=== PATIENT | female | born 1960 | race Caucasian/White ===

== ENCOUNTER 2018-12-19 17:33 | Inpatient (IN) | payer MEDICARE, MEDICAID ==
[~2018-12-19] VITALS: Ht 165.1 cm; Wt 61.2 kg
[2018-12-19] MEDS ORDERED: INVEGA SUSTENNA (17:54)
[2018-12-19] MEDS ORDERED: LEXAPRO (17:54)
[2018-12-19] MEDS ORDERED: OLAN5TAB3 PO (17:54)
[2018-12-19] MEDS ORDERED: PALI234D IM (18:00)
--- NOTE | 2018-12-19 18:03 | NUR ---
PT IS IN ROOM #5A. DR ANDERSON EVALUATED THE PT.
[2018-12-19 18:07] LABS: BASOPHILS # (AUTO) 0.1 K/uL (0.0-8.0); BASOPHILS % (AUTO) 0.6 % (0.0-2.0); EOSINOPHILS # (AUTO) 0.1 K/uL (0.0-0.7); EOSINOPHILS % (AUTO) 0.5 % (0.0-7.0); HEMOGLOBIN 15.6 g/dL (10.9-14.3); LYMPHOCYTES # (AUTO) 0.9 K/uL (20.0-40.0); LYMPHOCYTES % (AUTO) 9.7 % (20.5-51.5); MEAN CORPUSCULAR HEMOGLOBIN 30.8 uug (24.7-32.8); MEAN CORPUSCULAR HGB CONC 33 g/dL (32.3-35.6); MEAN CORPUSCULAR VOLUME 92.5 fL (75.5-95.3); MONOCYTES # (AUTO) 0.8 K/uL (2.0-10.0); MONOCYTES % (AUTO) 8.7 % (0.0-11.0); NEUTROPHILS # (AUTO) 7.6 K/uL (1.8-8.9); NEUTROPHILS % (AUTO) 80.5 % (38.5-71.5); PLATELET COUNT (AUTO) 327 K/uL (179-408); RED BLOOD CELL COUNT(AUTO) 5.08 MIL/uL (3.63-4.92); WHITE BLOOD COUNT (AUTO) 9.5 K/uL (3.8-11.8)
--- NOTE | 2018-12-19 18:11 | NUR ---
1st contact with patient- This patient just came back from radiology department, pending medical clearance for geriatric psych admission@this time
[2018-12-19 18:16] LABS: CARBON DIOXIDE 15 mmol/L (21-32); CHLORIDE 100 mmol/L (98-107); GLUCOSE 80 mg/dL (74-106); POTASSIUM 3.6 mmol/L (3.5-5.1); UREA NITROGEN, BLOOD 19 mg/dL (7-18)
[2018-12-19 18:19] LABS: ETHANOL < 3 MG/DL (0-0)
[2018-12-19 18:22] LABS: ALANINE AMINOTRANSFERASE 17 U/L (14-59); ALKALINE PHOSPHATASE 65 U/L (50-136); ASPARTATE AMINOTRANSFERASE 10 U/L (15-37); BILIRUBIN,DIRECT 0.2 mg/dL (0.0-0.2); BILIRUBIN,TOTAL 0.6 mg/dL (0.2-1.0)
[2018-12-19 18:23] LABS: ACETAMINOPHEN < 2.0 ug/mL (10-30)
[2018-12-19 18:32] LABS: *BILIRUBIN,URIN NEGATIVE (NEGATIVE); *BLOOD, URINE NEGATIVE (NEGATIVE); *CLARITY,URINE CLEAR (CLEAR); *COLOR,URINE YELLOW (YELLOW); *KETONES,URINE 4+ (NEGATIVE); *UROBILINOGEN,URINE 0.2 E.U./dl (NORMAL); LEUKOCYTE ESTERASE ,URINE NEGATIVE (NEGATIVE); NITRITE, URINE NEGATIVE (NEGATIVE); PH,URINE 5.5 (5.0-8.0); UGLUCOSE NEGATIVE (NEGATIVE)
[2018-12-19 18:32] LABS: THYROID STIMULATING HORMONE 2.664 mIU/mL (0.358-3.740)
--- NOTE | 2018-12-19 18:33 | NUR ---
Patient is not medically cleared. Patient will be admitted to med-surgical floor. Dr Delano Greene accepted the patient@[id number], pending bed & nurse assigned for this patient
[2018-12-19 18:46] LABS: ABG BASE EXCESS -11.1 mmol/L; ABG HCO3 13.1 mmol/L; ABG PCO2 26.3 mmHg (35.0-45.0); ABG PH 7.316 (7.350-7.450); ABG PO2 96.5 mmHg (75.0-100.0); ABG SITE RIGHT RADIAL; ABG TOTAL HEMOGLOBIN 15.2 G/dL (12.0-16.0); COHb 1.1 % (0.5-1.5); MetHb 0.3 % (0.0-1.5); VENT MODE ROOM AIR
[2018-12-19 18:49] LABS: MUCUS,URINE MODERATE /LPF (0-FEW)
[2018-12-19 19:00] LABS: *AMPHETAMINE, URINE NEGATIVE (NEGATIVE); *BARBITURATE, URINE NEGATIVE (NEGATIVE); *CANNABINOID, URINE NEGATIVE (NEGATIVE); *COCCAINE, URINE NEGATIVE (NEGATIVE); *OPIATE, URINE NEGATIVE (NEGATIVE); *PHENCYCLIDINE SCREEN,URINE NEGATIVE (NEGATIVE)
--- NOTE | 2018-12-19 19:16 | NUR ---
Hands off report given to RN John accordingly
--- NOTE | 2018-12-19 20:13 | NUR ---
Gave report to Sterling LUTHER
--- NOTE | 2018-12-19 20:30 | NUR ---
Pt. taken off unit via stretcher, NAD
--- NOTE | 2018-12-19 21:00 | NUR ---
Patient arrived from ED. Transferred to the bed. IV checked. ID band verified. Patient is awake, makes occasional eye contact. Responds Yes and No occasionally. Bed is in low locked position, call light is within reach, sitter is present. Comfort and safety provided.
[2018-12-19] MEDS ORDERED: OLANZAPINE 5 MG TABLET PO SCH (22:15)
[2018-12-19] MEDS ORDERED: MAGNESIUM HYDROXIDE 30 ML LIQUID UDC PO PRN (22:15)
[2018-12-19] MEDS ORDERED: ACETAMINOPHEN 325 MG TABLET PO PRN (22:15)
[2018-12-19] MEDS ORDERED: MORPHINE SULFATE 2 MG/1 ML DISP.SYRIN IV PRN (22:15)
[2018-12-19 22:49] VITALS: BP 129/85
[2018-12-19] MEDS ORDERED: LORAZEPAM 2 MG/1 ML VIAL IV PRN (23:15)
[2018-12-19] MEDS ORDERED: HALOPERIDOL LACTATE 5 MG/1 ML VIAL IM PRN (23:15)
[2018-12-19] MEDS: IV 1/2NS 1000 ML 1,000 ML IV PRN (23:17)
--- NOTE | 2018-12-20 02:30 | NUR ---
PATIENT REACHED TO THE TABLE AND TOOK HER APPLE JUICE, DRANK 200ML UNASSISTED. WITHDRAWN BUT MAKES OCCASIONAL EYE CONTACT AND SMILED AT THE THERMAL SURFACING MACHINE OPERATOR ONCE. IV IS RUNNING 80ML 1/2NS AT 80. SLEEPS INTERMITTENTLY. COMFORT AND SAFETY PROVIDED. WILL CONTINUE TO MONITOR
--- NOTE | 2018-12-20 04:00 | NUR ---
PATIENT WAS GIVEN A FULL BED BATH, SHAMPOO, AND ORAL CARE. PATIENT BRUSHED HER TEETH VIGOROUSLY WITH SCANT GUM BLEEDING AND COMBED HER HAIR. FOLLOWS BASIC COMMANDS AND IS SOMEWHAT COOPERATIVE. NO BM OR URINE OUTPUT. BED ALARM IS ON. SITTER PRESENT. COMFORT ANS SAFETY PROVIDED.
[2018-12-20 04:25] VITALS: BP 129/85
--- NOTE | 2018-12-20 04:30 | NUR ---
PATIENT REACHED TO THE TABLE AND DRANK SOME ORANGE JUICE, NO COUGH AFTERWARDS.
--- NOTE | 2018-12-20 05:00 | NUR ---
PATIENT ATTEMPTED TO LEAVE THE BED UNASSISTED. PATIENT WAS DISCONNECTED FROM THE IV POLE AND SHE WALKED TO THE BATHROOM UNASSISTED TO URINATE, SHE THEN RETURNED TO THE BED UNASSISTED. GAIT IS STEADY. WILL CONTINUE TO MONITOR. BED ALARM IS ON. SITTER PRESENT. CALL LIGHT IS WITHIN REACH. COMFORT ANS SAFETY PROVIDED.
[2018-12-20 05:07] VITALS: BP 117/49
[2018-12-20] MEDS: PANTOPRAZOLE SODIUM 40 MG VIAL IV SCH (06:37)
--- NOTE | 2018-12-20 06:50 | NUR ---
PATIENT SLEPT INTERMITTENTLY DURING THE NIGHT. AMBULATED TO URINATE 1 TIME. NO S&S OF PAIN OR ACUTE DISTRESS. COMFORT AND SAFETY PROVIDED. SITTER IS BY THE DOOR.
[2018-12-20] MEDS ORDERED: PANTOPRAZOLE SODIUM 40 MG TABLET.DR PO SCH (07:00)
[2018-12-20 07:01] LABS: BASOPHILS % (AUTO) 0.5 % (0.0-2.0); EOSINOPHILS # (AUTO) 0.1 K/uL (0.0-0.7); EOSINOPHILS % (AUTO) 1.8 % (0.0-7.0); HEMATOCRIT 40.9 % (31.2-41.9); HEMOGLOBIN 14.1 g/dL (10.9-14.3); LYMPHOCYTES # (AUTO) 1.3 K/uL (20.0-40.0); LYMPHOCYTES % (AUTO) 17.1 % (20.5-51.5); MEAN CORPUSCULAR HEMOGLOBIN 31.7 uug (24.7-32.8); MEAN CORPUSCULAR HGB CONC 35 g/dL (32.3-35.6); MEAN CORPUSCULAR VOLUME 91.6 fL (75.5-95.3); MONOCYTES % (AUTO) 12.8 % (0.0-11.0); NEUTROPHILS # (AUTO) 5.1 K/uL (1.8-8.9); NEUTROPHILS % (AUTO) 67.8 % (38.5-71.5); PLATELET COUNT (AUTO) 308 K/uL (179-408); RED BLOOD CELL COUNT(AUTO) 4.47 MIL/uL (3.63-4.92); WHITE BLOOD COUNT (AUTO) 7.5 K/uL (3.8-11.8)
--- NOTE | 2018-12-20 07:20 | NUR ---
RECEIVED PATIENT IN BED LAYING COMFORTABLY AND QUIETLY, WITH 1;1 SITTER, ON HOLD FOR GRAVELY DISABLED, NO SOB NOTED AT THIS TIME, NO C/O PAIN AT THIS TIME, IN LOW BED , SIDE RAILS UP X2, BED ALARM ON, NO AGGRESSIVE BEHAVIOR NOTED .CONTINUE TO MONITOR , CONTINUE TREATMENT PLAN.
[2018-12-20 07:22] LABS: BILIRUBIN,TOTAL 0.7 mg/dL (0.2-1.0); MAGNESIUM 1.8 mg/dL (1.8-2.4); PHOSPHOROUS 3.9 mg/dL (2.5-4.9); TOTAL PROTEIN, SERUM 7.1 g/dL (6.4-8.2)
[2018-12-20 07:35] LABS: CREATININE 0.9 mg/dL (0.6-1.3); POTASSIUM 3.7 mmol/L (3.5-5.1)
[2018-12-20 07:43] VITALS: BP 108/70
[2018-12-20] MEDS ORDERED: IV NORMAL SALINE 250 ML IV ONE (08:33)
[2018-12-20] MEDS ORDERED: SWABABLE VALVE TRANSFER SET EA MC ONE (08:33)
[2018-12-20] MEDS ORDERED: NORMAL SALINE FLUSH 10 ML DISP.SYRIN ONE (08:33)
[2018-12-20] MEDS ORDERED: IOHEXOL 300MG/ML 100 ML INFUS..BTL ONE (08:33)
[2018-12-20] MEDS ORDERED: ESCITALOPRAM OXALATE 10 MG TABLET PO SCH (09:00)
[2018-12-20] MEDS: ESCITALOPRAM OXALATE 10 MG TABLET PO SCH (12:30)
[2018-12-20] MEDS: IV 1/2NS 1000 ML 1,000 ML IV PRN (13:00)
[2018-12-20 15:56] VITALS: BP 107/65
--- NOTE | 2018-12-20 18:35 | NUR ---
PATIENT ON HOLD FOR 5150 FOR GRAVELY DISABLED, NO AGGRESSIVE BEHAVIOR NOTED AT THIS TIME. PATIENT ALERT AND ORIENTED, CONTINENT, ABLE TO AMBULATE TO BATHROOM AND FEEDS HERSELF. EARLIER PATIENT REFUSED HER LEXAPRO. NO C/O PAIN AT THIS TIME, NO S/S OF ACUTE DISTRESS NOTED, IV INTACT AND PATENT. CONTINUE IV FLUIDS 0.45% AT 80 CC/HR, WILL CONTINUE TO MONITOR.
[2018-12-20 19:34] VITALS: BP 122/76
--- NOTE | 2018-12-20 20:00 | NUR ---
Patient was received from the day shift nurse, report received. Patient is in bed, sleeping, averts gaze when awake. No acute distress noted. Comfort and safety provided. IV is running, IV site is clean and intact.
--- NOTE | 2018-12-20 20:45 | NUR ---
patient ambulated to the bathroom once. Dinner tray is in the room, no food was eaten. Patient is calm. Comfort and safety provided.
[2018-12-20] MEDS ORDERED: DOCUSATE SODIUM 100 MG CAPSULE PO SCH (21:00)
[2018-12-20] MEDS ORDERED: OLANZAPINE 5 MG TABLET PO SCH (21:00)
[2018-12-21] MEDS: IV 1/2NS 1000 ML 1,000 ML IV PRN ×2 (04:46→17:23)
--- NOTE | 2018-12-21 06:45 | NUR ---
PATIENT WAS AWAKE ALL NIGHT, DID NOT EAT OR DRINK, EYES OPEN, WITHDRAWN, AVOIDS EYE CONTACT. DID NOT TAKE HER MEDS AFTER BEING OFFERED MULTIPLE TIMES. COMFORT AND SAFETY PROVIDED.
[2018-12-21] MEDS: PANTOPRAZOLE SODIUM 40 MG VIAL IV SCH (06:52)
--- NOTE | 2018-12-21 07:25 | NUR ---
Received patient in bed laying comfortably, with 1:1 sitter, on 5150 hold. alert and oriented x1, no s/s sob noted at this time, no c/o pain at this time, IV intact and patent, bed in low position, side rails up x2 , bed alarm on. no aggressive behavior noted. will continue to monitor and provide safety at all time. continue treatment plan.
[2018-12-21 07:27] VITALS: BP 120/75
[2018-12-21] MEDS: ESCITALOPRAM OXALATE 10 MG TABLET PO SCH (09:00)
[2018-12-21 11:30] VITALS: BP 126/78
[2018-12-21 12:00] VITALS: BP 126/78
[2018-12-21 15:29] VITALS: BP 119/75
[2018-12-21] MEDS ORDERED: PANT40TA2 PO (15:42)
[2018-12-21] MEDS ORDERED: ACET325T53 PO (15:42)
[2018-12-21] MEDS ORDERED: HALO5VIA9 IM (15:42)
[2018-12-21] MEDS ORDERED: OLAN5TAB3 PO (15:42)
[2018-12-21] MEDS ORDERED: ESCI10TA PO (15:42)
[2018-12-21] MEDS ORDERED: MAGN400O6 PO (15:42)
[2018-12-21] MEDS ORDERED: DOCU100C36 PO (15:42)
[2018-12-21 16:00] VITALS: BP 119/75
--- NOTE | 2018-12-21 18:15 | NUR ---
Received orders to discharge patient to mental health unit, discharge instructions given, no sob noted at this time, no c/o pain noted at this time. IV and band removed, no aggressive behavior noted, belonging accounted for, questions and concerns addressed.
[2018-12-22] MEDS ORDERED: PANTOPRAZOLE SODIUM 40 MG TABLET.DR PO SCH (07:00)
[2018-12-22 16:00] VITALS: BP 96/65
== END 2018-12-21 18:30 | DRG 640 ==
LOC: ER 17:34 → MEDSURG3 20:23
PROVIDERS: ADMIT Internal Medicine; ATTEND Internal Medicine
DX: E87.2 Acidosis (principal); N17.0 Acute kidney failure with tubular necrosis; G92 Toxic encephalopathy; J98.11 Atelectasis; D68.59 Other primary thrombophilia; F50.9 Eating disorder, unspecified; Z68.22 Body mass index [BMI] 22.0-22.9, adult; N85.4 Malposition of uterus; N28.1 Cyst of kidney, acquired; M41.9 Scoliosis, unspecified; I51.7 Cardiomegaly; F25.1 Schizoaffective disorder, depressive type; Z79.899 Other long term (current) drug therapy; Z91.14 Patient's other noncompliance with medication regimen; Z91.19 Patient's noncompliance with other medical treatment and regimen; K82.8 Other specified diseases of gallbladder
CPT/HCPCS: 36415; 36600; 70030-TC; 70450; 71045; 80307; 83605; 83735; 84100; 84443; 85025; 87040; 93005; 97110; 97530; A4663; C9113; G0378; G0480; G0480-TC; J3490; J7050; Q9967

== ENCOUNTER 2018-12-21 19:40 | Inpatient (IN) | payer MEDICARE, MEDICAID ==
[~2018-12-21] VITALS: Ht 165.1 cm; Wt 62.1 kg
[~2018-12-21 19:40] MED LIST: ACET325T53 PO; DOCU100C36 PO; ESCI10TA PO; HALO5VIA9 IM; LEXAPRO; MAGN400O6 PO; OLAN5TAB3 PO; PALI234D IM; PANT40TA2 PO
--- NOTE | 2018-12-21 20:00 | NUR ---
PATIENT ADMITTED GPS OVERFLOW. PATIENT IS A/O X2. FLAT AFFECT. UNABLE TO ASSESS OR RECEIVE ANY INFORMATION OR HISTORY FROM PATIENT. VERY PASSIVE WHEN APPROACHED. NO S/S OF PAIN OR DISCOMFORT. NO FACIAL GRIMACE NOTED. SITTER AT BEDSIDE FOR SAFETY, ALL NEEDS ATTENDED. WILL CONTINUE TO MONITOR AND ASSESS.
[2018-12-21] MEDS ORDERED: TEMAZEPAM 7.5 MG CAPSULE PO PRN (20:30)
[2018-12-21] MEDS ORDERED: MAG HYDROX/AL HYDROX/SIMETH 30 ML LIQUID UDC PO PRN (20:30)
[2018-12-21] MEDS ORDERED: ACETAMINOPHEN 325 MG TABLET PO PRN ×2 (20:30→21:45)
[2018-12-21] MEDS ORDERED: MAGNESIUM HYDROXIDE 30 ML LIQUID UDC PO PRN ×2 (20:30→21:45)
[2018-12-21] MEDS ORDERED: LORAZEPAM 0.5 MG TABLET PO PRN (20:30)
[2018-12-21 20:36] VITALS: BP 120/62
[2018-12-21] MEDS ORDERED: OLANZAPINE 5 MG TABLET PO SCH (21:00)
[2018-12-21] MEDS ORDERED: HALOPERIDOL LACTATE 5 MG/1 ML VIAL IM PRN (21:45)
[2018-12-22] MEDS: PANTOPRAZOLE SODIUM 40 MG TABLET.DR PO SCH ×2 (06:09→07:00)
--- NOTE | 2018-12-22 06:30 | NUR ---
PATIENT ASLEEP IN BED. EASILY AROUSABLE. SITTER AT BEDSIDE FOR SAFETY. PATIENT SLEPT 5 HOURS AND 45 MINUTES. ALL NEEDS ATTENDED. WILL CONTINUE TO MONITOR AND ASSESS.
[2018-12-22 08:39] VITALS: BP 107/68
[2018-12-22] MEDS ORDERED: ESCITALOPRAM OXALATE 10 MG TABLET PO SCH ×2 (09:00)
--- NOTE | 2018-12-22 17:05 | NUR ---
Report given to nurse, passing on care to new nurse, pt is stable at this time.
--- NOTE | 2018-12-22 17:55 | NUR ---
received patient asleep on bed, denies pain , no sob no discomfort, with 1:1 sitter for safety , patient refused her medication , sister called, asking if she can talk with Dr. Campbell, left the number to the next shift, will continue to monitor
--- NOTE | 2018-12-22 19:30 | NUR ---
Rec'd pt in bed with eyes closed, opens to verbal stimuli. No s/s of acute distress noted. 1:1 sitter at bedside for safety. Pt on 14D hold up 01/05 for GD. Refused food and care at home banquet captain. Noted with good apetite for breakfast and lunch at 100%. Per report, does not want to eat dinner yet. Will continue to offer. All safety precautions in place. Will cont to monitor.
[2018-12-22 19:38] VITALS: BP 108/64
--- NOTE | 2018-12-22 19:50 | NUR ---
Noted pt ate 100% of her dinner. Ronen well.
[2018-12-22] MEDS: DOCUSATE SODIUM 100 MG CAPSULE PO SCH (20:31)
--- NOTE | 2018-12-22 20:37 | NUR ---
Pt in bed asleep, easily arousable. Offered Colace 200mg caps as ordered for HS meds. Pt opened her eyes and just stared. Attempted to offer x3, refused x3. Educated on risks vs benefits but just stared. Pt's BM current per MAILROOM MESSENGER report.
[2018-12-22] MEDS ORDERED: OLANZAPINE 5 MG TABLET PO SCH (21:00)
[2018-12-22] MEDS ORDERED: OLANZAPINE ZYDIS 5 MG TAB.RAPDIS SL ONE (21:00)
--- NOTE | 2018-12-23 05:50 | NUR ---
Pt slept x6.5 hrs. Pt with BRP, noted in bathroom [id number], found staring at herself in the mirror. Redirected back to bed and went back sleep after. All safety precautions in place. 1:1 sitter at bedside. Will continue to monitor.
[2018-12-23] MEDS: PANTOPRAZOLE SODIUM 40 MG TABLET.DR PO SCH (06:25)
[2018-12-23 07:35] VITALS: BP 108/63
[2018-12-23 08:00] VITALS: BP 108/63
[2018-12-23] MEDS: ESCITALOPRAM OXALATE 10 MG TABLET PO SCH (08:18)
[2018-12-23 15:05] VITALS: BP 117/77
--- NOTE | 2018-12-23 15:09 | NUR ---
transfer the pt to u via wheelchair in stable condition
--- NOTE | 2018-12-23 15:30 | NUR ---
RECEIVED FROM MED SURG /PSYCH OVERFLOW IN NO ACUTE DISTRESS ORIENTED TO ROOM AND SURROUNDINGS. VSS. RESTING QUIETLY
--- NOTE | 2018-12-23 17:07 | NUR ---
Social work note: Patient is LPS conserved by her sister, Dona Walden [[phone]], and conservatorship paperwork is in patient chart. However, detain and treat is not in chart initially. 12/22/2018: child day care center worker called and spoke with Dona informing her that the hospital needs a detain and treat. child day care center worker emailed Dona the [facility] detain and treat requesting it be filled out and faxed back. 12/23/2018: child day care center worker received completed detain and treat from Dona and placed in patient chart.
[2018-12-23] MEDS: OLANZAPINE ZYDIS 5 MG TAB.RAPDIS PO SCH (20:50)
[2018-12-23] MEDS: DOCUSATE SODIUM 100 MG CAPSULE PO SCH (20:50)
[2018-12-23] MEDS: OLANZAPINE 10 MG VIAL IM SCH (20:50)
[2018-12-24] MEDS: PANTOPRAZOLE SODIUM 40 MG TABLET.DR PO SCH (06:04)
[2018-12-24 07:30] VITALS: BP 115/81
[2018-12-24] MEDS: ESCITALOPRAM OXALATE 10 MG TABLET PO SCH (08:31)
--- NOTE | 2018-12-24 08:50 | NUR ---
Received asleep in bed but arouses to touch and name. Alert x2. Patient withdrawn and passive. Took medications and tolerated breakfast.
--- NOTE | 2018-12-24 14:10 | NUR ---
Initial Discharge Note: The patient was unresponsive upon adoption social worker consultation. The patient currently lives in her home [[address] [facility] [address]] with her caregiver. Per conservfady Carcamo, she would like the patient to return to her current residence once ready for discharge. SW Cash Reconciliation Specialist or other SW will continue to collaborate with IDT to ensure safe and proper discharge planning.
--- NOTE | 2018-12-24 14:51 | NUR ---
Explained to patient need to collect urine for urinalysis. Patient was withdrawn when asked if she needs to use the bathroom for us to collect a urine sample. Patient refused stand-up and move when asked try to go to the bathroom.
[2018-12-24 16:25] VITALS: BP 102/65
[2018-12-24] MEDS: DOCUSATE SODIUM 100 MG CAPSULE PO SCH (20:54)
[2018-12-24] MEDS: OLANZAPINE ZYDIS 5 MG TAB.RAPDIS PO SCH (20:54)
[2018-12-24 20:56] VITALS: BP 109/73
[2018-12-24] MEDS: OLANZAPINE 10 MG VIAL IM SCH (21:00)
--- NOTE | 2018-12-24 22:00 | NUR ---
received to care, lying in bed, non interactive. appears to be catatonic at times, other times, acutely aware of her surroundings, but remains non interactive. bedtime dose of IM zyprexa was held, due to low b/p of 109/73. all other meds were refused. as of 2199, she remains asleep. no distress noted. will continue to monitor closely.
[2018-12-25] MEDS: PANTOPRAZOLE SODIUM 40 MG TABLET.DR PO SCH (06:32)
[2018-12-25 07:30] VITALS: BP 102/62
[2018-12-25 07:57] LABS: BASOPHILS # (AUTO) 0.1 K/uL (0.0-8.0); BASOPHILS % (AUTO) 0.6 % (0.0-2.0); EOSINOPHILS # (AUTO) 0.2 K/uL (0.0-0.7); EOSINOPHILS % (AUTO) 1.9 % (0.0-7.0); HEMATOCRIT 35.1 % (31.2-41.9); HEMOGLOBIN 11.9 g/dL (10.9-14.3); LYMPHOCYTES # (AUTO) 1.4 K/uL (20.0-40.0); LYMPHOCYTES % (AUTO) 16.5 % (20.5-51.5); MEAN CORPUSCULAR HEMOGLOBIN 31.1 uug (24.7-32.8); MEAN CORPUSCULAR HGB CONC 34 g/dL (32.3-35.6); MEAN CORPUSCULAR VOLUME 91.9 fL (75.5-95.3); MONOCYTES # (AUTO) 0.8 K/uL (2.0-10.0); MONOCYTES % (AUTO) 9.1 % (0.0-11.0); NEUTROPHILS # (AUTO) 6.3 K/uL (1.8-8.9); NEUTROPHILS % (AUTO) 71.9 % (38.5-71.5); PLATELET COUNT (AUTO) 285 K/uL (179-408); RED BLOOD CELL COUNT(AUTO) 3.82 MIL/uL (3.63-4.92); WHITE BLOOD COUNT (AUTO) 8.8 K/uL (3.8-11.8)
[2018-12-25 08:14] LABS: CREATININE 0.7 mg/dL (0.6-1.3); MAGNESIUM 1.8 mg/dL (1.8-2.4); PHOSPHOROUS 3.6 mg/dL (2.5-4.9); POTASSIUM 3.6 mmol/L (3.5-5.1)
[2018-12-25] MEDS: ESCITALOPRAM OXALATE 10 MG TABLET PO SCH (09:00)
[2018-12-25 16:00] VITALS: BP 102/65
[2018-12-25 20:00] VITALS: BP 101/61
[2018-12-25] MEDS: OLANZAPINE 10 MG VIAL IM SCH (20:49)
[2018-12-25] MEDS: OLANZAPINE ZYDIS 5 MG TAB.RAPDIS PO SCH (20:49)
[2018-12-25] MEDS: DOCUSATE SODIUM 100 MG CAPSULE PO SCH (20:49)
--- NOTE | 2018-12-25 22:00 | NUR ---
received to care, lying in bed, non interactive. appears to be asleep. bedtime dose of IM zyprexa was held, due to low b/p of 101/61. all other meds were refused. as of 2199, she remains asleep. no distress noted. will continue to monitor closely.
[2018-12-26] MEDS: PANTOPRAZOLE SODIUM 40 MG TABLET.DR PO SCH (06:57)
[2018-12-26 07:30] VITALS: BP 108/71
[2018-12-26] MEDS: ESCITALOPRAM OXALATE 10 MG TABLET PO SCH ×2 (09:00→10:31)
[2018-12-26 20:00] VITALS: BP 107/61
[2018-12-26] MEDS: DOCUSATE SODIUM 100 MG CAPSULE PO SCH (21:00)
[2018-12-26] MEDS: OLANZAPINE ZYDIS 5 MG TAB.RAPDIS PO SCH (21:00)
[2018-12-26] MEDS: OLANZAPINE 10 MG VIAL IM SCH (21:00)
[2018-12-27] MEDS: PANTOPRAZOLE SODIUM 40 MG TABLET.DR PO SCH (07:00)
[2018-12-27 07:30] VITALS: BP 108/67
[2018-12-27] MEDS: ESCITALOPRAM OXALATE 10 MG TABLET PO SCH (09:00)
[2018-12-27 15:31] VITALS: BP 88/58
[2018-12-27 16:20] VITALS: BP 107/63
[2018-12-27] MEDS: MEGESTROL ACETATE 20 MG TABLET PO SCH (17:00)
[2018-12-27 20:00] VITALS: BP 131/107
[2018-12-27] MEDS: OLANZAPINE ZYDIS 5 MG TAB.RAPDIS PO SCH (21:00)
[2018-12-27] MEDS: DOCUSATE SODIUM 100 MG CAPSULE PO SCH (21:00)
[2018-12-27] MEDS: OLANZAPINE 10 MG VIAL IM PRN (23:07)
[2018-12-28] MEDS: PANTOPRAZOLE SODIUM 40 MG TABLET.DR PO SCH (06:55)
[2018-12-28 07:30] VITALS: BP 90/53
[2018-12-28] MEDS: MEGESTROL ACETATE 20 MG TABLET PO SCH ×2 (09:00→16:53)
[2018-12-28] MEDS: ESCITALOPRAM OXALATE 10 MG TABLET PO SCH (09:00)
--- NOTE | 2018-12-28 13:17 | NUR ---
Sw received call from pt's sister who is also her LPS conservator Dona Banks ([phone]), pt sister is requesting update on pt. film processing utility worker provided update on pts current state. SW also notified pts MD that pts sister/conservator is requesting a call to discuss pts care. updated pts sister that pts psychiatrist has been notified.
[2018-12-28 17:48] VITALS: BP 126/77
[2018-12-28] MEDS: DOCUSATE SODIUM 100 MG CAPSULE PO SCH (20:16)
[2018-12-28] MEDS: OLANZAPINE ZYDIS 5 MG TAB.RAPDIS PO SCH (20:16)
[2018-12-28 20:26] VITALS: BP 120/76
[2018-12-28] MEDS: OLANZAPINE 10 MG VIAL IM PRN (20:38)
[2018-12-29] MEDS: PANTOPRAZOLE SODIUM 40 MG TABLET.DR PO SCH ×2 (06:09→06:14)
--- NOTE | 2018-12-29 06:25 | NUR ---
GPS: Nursing Notes: Hours of Sleep: Patient slept 9 hours and 30 minutes.
[2018-12-29 07:30] VITALS: BP 103/58
[2018-12-29] MEDS: ESCITALOPRAM OXALATE 10 MG TABLET PO SCH (09:00)
[2018-12-29] MEDS: MEGESTROL ACETATE 20 MG TABLET PO SCH ×2 (09:00→17:00)
[2018-12-29 16:29] VITALS: BP 92/61
--- NOTE | 2018-12-29 19:30 | NUR ---
GPS: Rec'd pt in bed with eyes open. Continues to be noninteractive when spoken to. Catatonic. Continues to refuse meds. No s/s of acute distress noted. All safety precautions in place. Will cont to monitor.
[2018-12-29] MEDS: DOCUSATE SODIUM 100 MG CAPSULE PO SCH ×2 (20:12→20:15)
[2018-12-29] MEDS: OLANZAPINE ZYDIS 5 MG TAB.RAPDIS PO SCH ×2 (20:12→20:15)
[2018-12-29 20:22] VITALS: BP 132/76
[2018-12-29] MEDS: OLANZAPINE 10 MG VIAL IM PRN (20:27)
--- NOTE | 2018-12-29 20:30 | NUR ---
Pt refused Zyprexa PO and Colace PO. Administered Zyprexa IM as ordered when PO is refused. Injection site to left gluteus medius site. Ronen well. Educated pt on considering taking PO meds tomorrow night to avoid receiving the IM, no reaction from pt. Continues to have flat affect, catatonic. Will cont to monitor. BP135/84 HR 77.
[2018-12-30] MEDS: PANTOPRAZOLE SODIUM 40 MG TABLET.DR PO SCH ×2 (06:17→06:24)
--- NOTE | 2018-12-30 06:41 | NUR ---
Pt slept x 5.30 hrs. Refused Protonix. No s/s of acute distress noted. All safety precautions in place. Will endorse to oncoming shift.
[2018-12-30 07:30] VITALS: BP 118/73
[2018-12-30] MEDS: MEGESTROL ACETATE 20 MG TABLET PO SCH (09:00)
[2018-12-30] MEDS: ESCITALOPRAM OXALATE 10 MG TABLET PO SCH (09:00)
[2018-12-30] MEDS: DOCUSATE SODIUM 100 MG CAPSULE PO SCH (10:16)
[2018-12-30] MEDS: OLANZAPINE ZYDIS 5 MG TAB.RAPDIS PO SCH (16:50)
[2018-12-30] MEDS: OLANZAPINE 10 MG VIAL IM PRN (16:55)
[2018-12-31] MEDS: PANTOPRAZOLE SODIUM 40 MG TABLET.DR PO SCH (06:22)
[2018-12-31 07:30] VITALS: BP 95/61
[2018-12-31] MEDS: ESCITALOPRAM OXALATE 10 MG TABLET PO SCH (09:00)
[2018-12-31] MEDS: OLANZAPINE ZYDIS 5 MG TAB.RAPDIS PO SCH ×2 (09:00→17:58)
[2018-12-31] MEDS: OLANZAPINE 10 MG VIAL IM PRN (09:23)
[2018-12-31 16:00] VITALS: BP 109/77
[2018-12-31 20:23] VITALS: BP 118/70
[2018-12-31] MEDS: DOCUSATE SODIUM 100 MG CAPSULE PO SCH (20:34)
[2019-01-01] MEDS: PANTOPRAZOLE SODIUM 40 MG TABLET.DR PO SCH (06:17)
[2019-01-01 07:30] VITALS: BP 97/64
[2019-01-01] MEDS: OLANZAPINE ZYDIS 5 MG TAB.RAPDIS PO SCH ×2 (08:38→17:58)
[2019-01-01] MEDS: ESCITALOPRAM OXALATE 10 MG TABLET PO SCH (08:38)
[2019-01-01 16:00] VITALS: BP 96/60
[2019-01-01 19:52] VITALS: BP 101/64
[2019-01-01] MEDS: DOCUSATE SODIUM 100 MG CAPSULE PO SCH (20:04)
[2019-01-02] MEDS: PANTOPRAZOLE SODIUM 40 MG TABLET.DR PO SCH (06:05)
[2019-01-02 07:30] VITALS: BP 109/55
[2019-01-02] MEDS: OLANZAPINE ZYDIS 5 MG TAB.RAPDIS PO SCH ×2 (08:53→16:07)
[2019-01-02] MEDS: ESCITALOPRAM OXALATE 10 MG TABLET PO SCH (08:53)
[2019-01-02 16:00] VITALS: BP 104/67
[2019-01-02 20:06] VITALS: BP 101/51
[2019-01-02] MEDS: DOCUSATE SODIUM 100 MG CAPSULE PO SCH (20:38)
[2019-01-03] MEDS: PANTOPRAZOLE SODIUM 40 MG TABLET.DR PO SCH (06:18)
--- NOTE | 2019-01-03 06:52 | NUR ---
PT SLEPT 9.0 HRS. PT TAKEN ALL MEDS DURING SHIFT. URINE SAMPLE COLLECTED, SENT TO LAB.
[2019-01-03 07:30] VITALS: BP 117/75
[2019-01-03] MEDS: ESCITALOPRAM OXALATE 10 MG TABLET PO SCH (08:08)
[2019-01-03] MEDS: OLANZAPINE ZYDIS 5 MG TAB.RAPDIS PO SCH ×2 (08:08→16:48)
[2019-01-03 09:12] LABS: *BILIRUBIN,URIN NEGATIVE (NEGATIVE); *CLARITY,URINE CLEAR (CLEAR); *COLOR,URINE YELLOW (YELLOW); *KETONES,URINE NEGATIVE (NEGATIVE); *UROBILINOGEN,URINE 0.2 E.U./dl (NORMAL); LEUKOCYTE ESTERASE ,URINE 2+ (NEGATIVE); NITRITE, URINE POSITIVE (NEGATIVE); UGLUCOSE NEGATIVE (NEGATIVE)
[2019-01-03 09:19] LABS: *BLOOD, URINE TRACE (NEGATIVE)
[2019-01-03 09:28] LABS: BACTERIA,URINE MANY /HPF (NONE SEEN); RBC,URINE 0-3 /HPF (0-3); SQUAMOUS EPITHELIAL CELL,UR FEW /HPF (NONE SEEN); WBC,URINE 80-100 /HPF (0-3)
[2019-01-03] MEDS ORDERED: CEPHALEXIN MONOHYDRATE 125 MG/5 ML SUSPENSION 100ML NG SCH (14:00)
[2019-01-03] MEDS: CEphaleXIN 250 MG CAPSULE PO SCH ×2 (14:03→21:10)
[2019-01-03] MEDS: DOCUSATE SODIUM 100 MG CAPSULE PO SCH (21:09)
[2019-01-04] MEDS: CEphaleXIN 250 MG CAPSULE PO SCH ×3 (05:50→21:00)
[2019-01-04] MEDS: PANTOPRAZOLE SODIUM 40 MG TABLET.DR PO SCH (06:02)
[2019-01-04 07:30] VITALS: BP 101/59
[2019-01-04] MEDS: ESCITALOPRAM OXALATE 10 MG TABLET PO SCH ×2 (09:00→16:21)
[2019-01-04] MEDS: OLANZAPINE ZYDIS 5 MG TAB.RAPDIS PO SCH ×2 (09:00→16:21)
[2019-01-04] MEDS: OLANZAPINE 10 MG VIAL IM PRN (09:19)
[2019-01-04] MEDS ORDERED: OLANZAPINE 10 MG VIAL IM PRN (15:30)
[2019-01-04 16:41] VITALS: BP 118/73
[2019-01-04 20:09] VITALS: BP 101/54
[2019-01-04] MEDS: DOCUSATE SODIUM 100 MG CAPSULE PO SCH (20:50)
--- NOTE | 2019-01-04 21:19 | NUR ---
RECEIVED PATIENT IN BED. RESPONDS TO NAME BUT REMAINS NON-INTERACTIVE AND PASSIVE.INITIALLY REFUSED MEDS BUT TOOK THEM ON THE SECOND TRY. NO ACUTE DISTRESS OR PAIN NOTED AT THIS TIME.WILL CONTINUE WITH MONITORING.
[2019-01-05] MEDS: CEphaleXIN 250 MG CAPSULE PO SCH ×3 (06:15→22:00)
[2019-01-05] MEDS: PANTOPRAZOLE SODIUM 40 MG TABLET.DR PO SCH (06:15)
--- NOTE | 2019-01-05 06:29 | NUR ---
SHE SLEPT FOR APPROX. 9 HRS.
[2019-01-05 07:41] VITALS: BP 107/58
[2019-01-05] MEDS: OLANZAPINE ZYDIS 5 MG TAB.RAPDIS PO SCH ×2 (08:28→16:19)
[2019-01-05] MEDS: ESCITALOPRAM OXALATE 10 MG TABLET PO SCH (08:28)
[2019-01-05 16:54] VITALS: BP 94/56
[2019-01-05] MEDS: DOCUSATE SODIUM 100 MG CAPSULE PO SCH (20:49)
--- NOTE | 2019-01-05 21:54 | NUR ---
RECEIVED PATIENT IN HER ROOM IN BED ASLEEP BUT EASILY AROUSABLE. PT IN NO DISTRESS; HOWEVER, SHE REFUSED TO TALK OR MAKE EYE CONTACT WITH THIS SPORTS BOOK WRITER, AND SHE ONLY SAID, "NO, I DON'T WANT ANYTHING TO EAT". CONTINUE WITHDRAWN ISOLATIVE. REFUSING TO PARTICIPATE IN ACTIVITIES. FLAT AFFECT, LOW MOOD IS NOTED. SAFETY PRECAUTION AND FALL PREVENTION ARE IN PLACED. PATIENT WAS REASSURED FOR HER SAFETY, SHE IS ENCOURAGED TO VERBALIZED FEELING. WILL CONTINUE TO MONITOR.
[2019-01-06] MEDS: CEphaleXIN 250 MG CAPSULE PO SCH ×3 (06:27→21:17)
--- NOTE | 2019-01-06 06:42 | NUR ---
PATIENT REFUSED KEFLEX 250MG PO THE DOSE FOR 2200 LAST NIGHT; HOWEVER, SHE TOOK THE DOSE AT 0600 TODAY. SHE SLEPT FOR APPROX 9.00 HRS THROUGH THE NIGHT AND HAD A SHOWER THIS MORNING. SHE CONTINUE ISOLATIVE, WITHDRAWN AND SELECTIVELY MUTE. WILL CONTINUE TO MONITOR.
[2019-01-06] MEDS: PANTOPRAZOLE SODIUM 40 MG TABLET.DR PO SCH ×2 (07:00→08:12)
[2019-01-06] MEDS: OLANZAPINE ZYDIS 5 MG TAB.RAPDIS PO SCH ×2 (08:12→17:56)
[2019-01-06] MEDS: ESCITALOPRAM OXALATE 10 MG TABLET PO SCH (08:12)
[2019-01-06 16:00] VITALS: BP 133/76
[2019-01-06 20:00] VITALS: BP 128/78
[2019-01-06] MEDS: DOCUSATE SODIUM 100 MG CAPSULE PO SCH (21:17)
--- NOTE | 2019-01-07 04:34 | NUR ---
patient in room in bed without any behavior probleems, med compliant and ate 100 percent dinner , continue to monitor for safety
[2019-01-07] MEDS: PANTOPRAZOLE SODIUM 40 MG TABLET.DR PO SCH (06:00)
[2019-01-07] MEDS: CEphaleXIN 250 MG CAPSULE PO SCH ×3 (06:00→21:13)
[2019-01-07 07:30] VITALS: BP 133/82
[2019-01-07] MEDS: OLANZAPINE ZYDIS 5 MG TAB.RAPDIS PO SCH ×2 (09:23→18:16)
[2019-01-07] MEDS: ESCITALOPRAM OXALATE 10 MG TABLET PO SCH (09:23)
--- NOTE | 2019-01-07 14:36 | NUR ---
Discharge plannin:37pm: licensing worker called and left a voicemail with patient sister/LPS Conservator, Dona Banks [[phone]], informing her of patient scheduled discharge set for tomorrow pending overnight behavior. licensing worker requested call back to discuss plan and details. licensing worker currently awaiting call back.
[2019-01-07 16:08] VITALS: BP 127/65
[2019-01-07 20:00] VITALS: BP 111/66
[2019-01-07] MEDS: DOCUSATE SODIUM 100 MG CAPSULE PO SCH (20:55)
[2019-01-08] MEDS: CEphaleXIN 250 MG CAPSULE PO SCH (06:00)
[2019-01-08] MEDS: PANTOPRAZOLE SODIUM 40 MG TABLET.DR PO SCH (06:27)
[2019-01-08 07:30] VITALS: BP 109/63
[2019-01-08] MEDS: OLANZAPINE ZYDIS 5 MG TAB.RAPDIS PO SCH ×2 (08:34→16:10)
[2019-01-08] MEDS: ESCITALOPRAM OXALATE 10 MG TABLET PO SCH (08:34)
--- NOTE | 2019-01-08 14:24 | NUR ---
DC NOTE: Patient will be discharged back to her home [[address] [facility] [address]], with her 24/03 caregiver, Nataliia [ ]. Transportation will be provided by Nataliia at 3:30pm. Patient is alert and oriented x1-2, denies any SI/HI, and is able to plan for self-care. Patient was briefed on discharge and aware and agreeable with plan. sheet metal worker supervisor has called and spoken with patient SAROJ conservator and sister, Dona Banks [[phone]], who states she is agreeable with patient discharge plan. Patient will follow-up with primary care physician, Dr. Carl Blue [[address], [place] [address]; ] on Saturday, January 12, 2019 at 9:30am. Patient currently sees psychiatrist, Dr. Danette Farris [[address] [address]; ] as an outpatient. Per patient LPS Conservator and sister, Dona Banks [[phone]], she will make a follow-up psychiatrist appointment. If patient is in need of psychiatric follow-up sooner, she has been provided with a referral to [facility] [ [place] [address]; ] where patient can walk-in for appointment Friday thru Friday anytime between 8:00pm-5:00pm. Patient also receives home health services including medication management from [facility] [[phone]]. Per patient caregiver, the patient will continue to be followed by this agency for services including monthly psychotropic injections. Patient was given outpatient mental health resources [facility] , Enriqueta Mccarthy , and the National Suicide Prevention Lifeline . Addendum: 01/08/19 at 1430 by JUSTO RUIZ Additional information: sheet metal worker supervisor received call from patient psychiatrist, Dr. Farris stating that patient has a follow-up appointment scheduled for Tuesday, January 15, 2019 at 12:00pm. Appointment was made by patient LPS conservator, Dona Banks.
--- NOTE | 2019-01-08 16:18 | NUR ---
ADMINISTERED LAST 1700 MEDICATIONS TO PT. PT COMPLIANT WITH ENCOURAGEMENT AND PROMPTING. CALLED IN PRESCRIPTIONS PER CAREGIVER REQUEST TO [facility]IED [facility]ALTH PHARM[facility] AT . PT LEFT ON W/C ACCOMPANIED BY HIGH LIGHTER, AND CAREGIVER AND MALE ENVIRONMENTAL HEALTH AND SAFETY INTERN TO PRIVATE VEHICLE. DENIES PAIN OR DISCOMFORT. SELECTIVELY MUTE. IN NO ACUTE DISTRESS.
== END 2019-01-08 16:15 | disposition home health service (06) | DRG 885 ==
LOC: GPSOV3 19:40 → GPS 12-23 16:14
PROVIDERS: ADMIT Psychiatry & Neurology Psychiatry
DX: F25.9 Schizoaffective disorder, unspecified (principal); N39.0 Urinary tract infection, site not specified; B96.89 Other specified bacterial agents as the cause of diseases classified elsewhere; F94.0 Selective mutism; Z79.899 Other long term (current) drug therapy
CPT/HCPCS: 36415; 83735; 84100; 85025; 87077; 87086; 93005; J2358